=== PATIENT | female | born 1975 | race Two or more races ===

== ENCOUNTER 2017-09-10 16:03 | Emergency (ER) | payer OTHER ==
[~2017-09-10] VITALS: Ht 160 cm; Wt 90.7 kg
[2017-09-10 16:48] LABS: Basophils # (auto) 0.1 uL; Basophils % (auto) 1.2 % (0.0-2.0); Eosinophils # (auto) 0.2 uL; Hematocrit 44.5 % (36.0-46.0); Hemoglobin 15.1 g/dL (12.2-16.2); Lymphocytes # (auto) 3.1 uL; Lymphocytes % (auto) 29.9 % (10.0-50.0); Mean Corpuscular Hemoglobin 29.6 pg (28.0-32.0); Mean Corpuscular Hgb Conc. 34.1 g/dL (32.0-36.0); Mean Corpuscular Volume 86.8 fL (80.0-100.0); Mean Platelet Volume 8.3 fL (6.9-10.8); Monocytes # (auto) 0.6 uL; Monocytes % (auto) 6.1 % (0.0-12.0); Neutrophils # (auto) 6.2 uL; Neutrophils % (auto) 60.8 % (37.0-80.0); Nucleated Red Blood Cells % 0.1 %; Platelet Count (auto) 376 10^3/uL (140-450); Red Cell Distribution Width 13.2 % (11.8-14.3); White Blood Cell 10.2 10^3/uL (4.4-10.8)
[2017-09-10 16:59] LABS: Urine Bilirubin Negative (Negative); Urine Blood Negative /uL (Negative); Urine Color Yellow (Yellow); Urine Glucose 4+ mg/dL (Normal); Urine Ketone TRACE (Negative); Urine Nitrite Negative (Negative); Urine RBC 1 /hpf (0 - 4); Urine Squamous Epithelial Cell FEW /hpf (<5); Urine Urobilinogen Normal (Negative)
[2017-09-10] MEDS ORDERED: HYDROmorphone HCL 2 MG/ML VL IV ONE (17:00)
[2017-09-10] MEDS ORDERED: SODIUM CHLORIDE 0.9% 1,000 ML IVB ONE (17:00)
[2017-09-10] MEDS ORDERED: ONDANSETRON HCL 4 MG/2 ML VIAL IV ONE (17:00)
[2017-09-10] MEDS ORDERED: PANTOPRAZOLE 40 MG/10 ML VIAL IV STA (17:00)
[2017-09-10 17:01] LABS: Albumin 3.5 g/dL (3.4-5.0); BUN/Creatinine Ratio 13.5; Potassium 3.3 mmol/L (3.5-5.1)
[2017-09-10 17:33] LABS: Bilirubin, Total 0.5 mg/dL (0.2-1.0); Calcium 8.9 mg/dL (8.5-10.1); Total Protein 7.7 g/dL (6.4-8.2)
[2017-09-10] MEDS ORDERED: KETOROLAC TROMETH 30 MG/ML 1ML VIAL IV ONE (19:15)
[2017-09-10 20:15] VITALS: BP 103/63
== END 2017-09-10 21:09 | disposition home or self-care (01) ==
LOC: ER 16:03
DX: R10.13 Epigastric pain (principal); I10 Essential (primary) hypertension
CPT/HCPCS: 36415; 74176; 76705; 80053; 81001; 81025; 82150; 83690; 85025; 94761; 96361; 96374; 96375; 99285; C9113; J1170; J1885; J2405